=== PATIENT | male | born 1970 | race Caucasian/White ===

== ENCOUNTER 2019-09-18 20:33 | Inpatient (IN) | payer MEDICAID ==
[~2019-09-18] VITALS: Ht 165.1 cm; Wt 123.1 kg
[2019-09-18] MEDS ORDERED: SODIUM CHLORIDE FLUSH 10ML SYR IVF ONE (21:00)
--- NOTE | 2019-09-18 21:23 | NUR ---
MEDICAL RECORDS FROM [facility] REQUESTED.
[2019-09-18 21:45] LABS: BASOPHILS # (AUTO) 0.04 x10^3/uL (0-0.1); BASOPHILS % (AUTO) 1 % (0-1); EOSINOPHILS # (AUTO) 0.06 x10^3/uL (0-0.4); EOSINOPHILS % (AUTO) 1 % (1-7); LYMPHOCYTES # (AUTO) 0.69 x10^3/uL (1-3.4); LYMPHOCYTES % (AUTO) 9 % (22-44); MD NO; MEAN CORPUSCULAR HEMOGLOBIN 32.1 pg (27.5-34.5); MEAN CORPUSCULAR HGB CONC 32.5 g/dL (33.2-36.2); MEAN CORPUSCULAR VOLUME 98.9 fL (81-97); MEAN PLATELET VOLUME 8.4 fL (7.4-10.4); MONOCYTES # (AUTO) 0.79 x10^3/uL (0.2-0.8); MONOCYTES % (AUTO) 10 % (2-9); NEUTROPHILS # (AUTO) 6.05 x10^3/uL (1.8-6.8); NEUTROPHILS % (AUTO) 79 % (42-75); PLATELET COUNT 208 x10^3/uL (130-400); RED BLOOD COUNT 4.78 x10^6/uL (4.38-5.82); RED CELL DISTRIBUTION WIDTH 17.8 % (9.4-14.8)
[2019-09-18 21:54] LABS: INTERNATIONAL NORMALIZED RATIO 1.79 (0.93-1.1); PROTHROMBIN TIME 19.1 Seconds (9.6-11.5)
[2019-09-18] MEDS ORDERED: FUROSEMIDE 40 MG/4 ML IV ONE ×2 (22:00)
[2019-09-18 22:02] LABS: ALANINE AMINOTRANSFERASE 51 U/L (12-78); ALBUMIN 2.7 g/dL (3.4-5.0); ANION GAP 10 mmol/L (5-15); CALCIUM 8.3 mg/dL (8.5-10.1); CHLORIDE 108 mmol/L (98-107); CREATININE 1.23 mg/dL (0.7-1.3)
[2019-09-18 22:06] LABS: ALKALINE PHOSPHATASE 194 U/L (45-117); TOTAL PROTEIN 6.8 g/dL (6.4-8.2); TROPONIN I 0.084 ng/mL (0.000-0.045)
--- NOTE | 2019-09-18 22:11 | NUR ---
PT ARRIVES TO THE ED WITH RESP DISTRESS AND ABD PAIN. PT REPORTS THAT HE DOES NOT FEEL WELL AND FEELS LIKE HE HAS ALOT OF FLUID HE IS HOLDING ONTO. PT REPORTS HE ONLY GETS NO REFILL BOTTLES FOR HIS MEDICINES AND NEVER FOLLOWS UP. HIS PCP WONT SEE HIM BECUASE HE HAS HAD MULTIPLE NO SHOWS. PT LOOKS MODERATELY UNCOMFORTABLE. P REPORTS USING METH THIS MORNING.
[2019-09-18] MEDS ORDERED: FUROSEMIDE 40 MG/4 ML ONE (22:14)
--- NOTE | 2019-09-18 22:18 | NUR ---
Pt abulated to restroom with 1 person assist.
--- NOTE | 2019-09-18 23:26 | NUR ---
Pt was medicated per emar, made aware pt very sob with exertion.
--- NOTE | 2019-09-18 23:55 | NUR ---
Report to ROBBY reyes
[2019-09-19] MEDS ORDERED: ONDANSETRON ODT 4 MG PO PRN
[2019-09-19] MEDS ORDERED: POLYETHYLENE GLYCOL 17 GM PACKET PO PRN
[2019-09-19] MEDS ORDERED: BISACODYL 10 MG SUPP PR PRN
[2019-09-19] MEDS: NICOTINE 7 MG/24 HR PATCH.TD24 TD SCH (00:32)
[2019-09-19] MEDS: INSULIN LISPRO 100 UNITS/ML, PEN SQ-INSULIN SCH ×5 (00:33→20:29)
[2019-09-19 00:38] VITALS: BP 133/99
[2019-09-19] MEDS: LACTULOSE 20 GM/30 ML UDC PO SCH ×3 (00:55→20:14)
[2019-09-19 03:32] LABS: BASOPHILS # (AUTO) 0.14 x10^3/uL (0-0.1); BASOPHILS % (AUTO) 2 % (0-1); EOSINOPHILS # (AUTO) 0.06 x10^3/uL (0-0.4); EOSINOPHILS % (AUTO) 1 % (1-7); LYMPHOCYTES # (AUTO) 0.89 x10^3/uL (1-3.4); LYMPHOCYTES % (AUTO) 12 % (22-44); MD NO; MEAN CORPUSCULAR HEMOGLOBIN 31.9 pg (27.5-34.5); MEAN CORPUSCULAR HGB CONC 32.3 g/dL (33.2-36.2); MEAN CORPUSCULAR VOLUME 98.8 fL (81-97); MEAN PLATELET VOLUME 8.3 fL (7.4-10.4); MONOCYTES % (AUTO) 11 % (2-9); NEUTROPHILS # (AUTO) 5.76 x10^3/uL (1.8-6.8); NEUTROPHILS % (AUTO) 75 % (42-75); PLATELET COUNT 204 x10^3/uL (130-400); RED BLOOD COUNT 4.75 x10^6/uL (4.38-5.82); RED CELL DISTRIBUTION WIDTH 17.3 % (9.4-14.8)
[2019-09-19 03:43] LABS: ALANINE AMINOTRANSFERASE 51 U/L (12-78); ALBUMIN 2.7 g/dL (3.4-5.0); ANION GAP 8 mmol/L (5-15); CALCIUM 8.4 mg/dL (8.5-10.1); CHLORIDE 108 mmol/L (98-107); CREATININE 1.28 mg/dL (0.7-1.3)
[2019-09-19 03:47] LABS: ALKALINE PHOSPHATASE 197 U/L (45-117); BILIRUBIN,TOTAL 3.8 mg/dL (0.2-1.0); TOTAL PROTEIN 6.7 g/dL (6.4-8.2); TROPONIN I 0.094 ng/mL (0.000-0.045)
[2019-09-19 05:47] VITALS: BP 97/76
[2019-09-19] MEDS: CARVEDILOL 3.125 MG TABLET PO SCH ×2 (05:51→17:54)
[2019-09-19] MEDS: ASPIRIN 81 MG TABLET CHEW PO SCH (05:51)
[2019-09-19 07:00] VITALS: BP 128/90
[2019-09-19] MEDS: LISINOPRIL 10 MG TABLET PO SCH (08:37)
[2019-09-19] MEDS: SENNA/DOCUSATE TABLET PO SCH (08:37)
[2019-09-19] MEDS: SPIRONOLACTONE 25 MG TABLET PO SCH (08:38)
[2019-09-19] MEDS: SODIUM CHLORIDE FLUSH 10ML SYR IVF SCH ×3 (08:39→20:29)
[2019-09-19] MEDS: FUROSEMIDE 40 MG/4 ML IV SCH ×2 (08:44→17:54)
[2019-09-19 10:16] LABS: TROPONIN I 0.095 ng/mL (0.000-0.045)
[2019-09-19 18:06] LABS: MICROSCOPIC NOT IND
[2019-09-20] MEDS: NICOTINE 7 MG/24 HR PATCH.TD24 TD SCH ×2 (00:07→23:43)
[2019-09-20] MEDS: CARVEDILOL 3.125 MG TABLET PO SCH ×2 (05:24→17:11)
[2019-09-20] MEDS: ASPIRIN 81 MG TABLET CHEW PO SCH (05:24)
[2019-09-20 06:23] LABS: ANION GAP 7 mmol/L (5-15); CALCIUM 8.8 mg/dL (8.5-10.1); CHLORIDE 103 mmol/L (98-107); CREATININE 1.14 mg/dL (0.7-1.3)
[2019-09-20] MEDS: INSULIN LISPRO 100 UNITS/ML, PEN SQ-INSULIN SCH ×4 (07:00→20:31)
[2019-09-20] MEDS: LACTULOSE 20 GM/30 ML UDC PO SCH ×2 (08:15→21:00)
[2019-09-20] MEDS: FUROSEMIDE 40 MG/4 ML IV SCH ×2 (08:15→17:11)
[2019-09-20] MEDS: SENNA/DOCUSATE TABLET PO SCH (08:16)
[2019-09-20] MEDS: LISINOPRIL 10 MG TABLET PO SCH (08:16)
[2019-09-20] MEDS: SODIUM CHLORIDE FLUSH 10ML SYR IVF SCH ×2 (08:16→20:31)
[2019-09-20] MEDS: SPIRONOLACTONE 25 MG TABLET PO SCH (08:16)
[2019-09-20] MEDS ORDERED: ACETAMINOPHEN 325 MG TABLET PO PRN (22:30)
[2019-09-21 05:30] VITALS: BP 103/74
[2019-09-21] MEDS: ASPIRIN 81 MG TABLET CHEW PO SCH (05:37)
[2019-09-21] MEDS: CARVEDILOL 3.125 MG TABLET PO SCH ×2 (05:37→16:59)
[2019-09-21] MEDS: FUROSEMIDE 40 MG/4 ML IV SCH ×2 (06:02→16:59)
[2019-09-21 06:40] LABS: ANION GAP 8 mmol/L (5-15); CALCIUM 8.2 mg/dL (8.5-10.1); CHLORIDE 101 mmol/L (98-107)
[2019-09-21 07:48] VITALS: BP 116/95
[2019-09-21] MEDS: INSULIN LISPRO 100 UNITS/ML, PEN SQ-INSULIN SCH ×4 (08:04→20:27)
[2019-09-21] MEDS: SODIUM CHLORIDE FLUSH 10ML SYR IVF SCH ×2 (08:04→21:00)
[2019-09-21] MEDS: LACTULOSE 20 GM/30 ML UDC PO SCH ×2 (08:04→20:27)
[2019-09-21] MEDS: SPIRONOLACTONE 25 MG TABLET PO SCH (08:04)
[2019-09-21] MEDS: LISINOPRIL 10 MG TABLET PO SCH (08:04)
[2019-09-21] MEDS: SENNA/DOCUSATE TABLET PO SCH (08:05)
[2019-09-21 12:00] VITALS: BP 111/80
[2019-09-21 13:42] VITALS: BP 114/81
[2019-09-21 18:30] VITALS: BP 111/77
[2019-09-22] MEDS: NICOTINE 7 MG/24 HR PATCH.TD24 TD SCH (00:14)
[2019-09-22 02:07] VITALS: BP 132/80
[2019-09-22 05:40] VITALS: BP 108/74
[2019-09-22] MEDS: ASPIRIN 81 MG TABLET CHEW PO SCH (05:41)
[2019-09-22] MEDS: CARVEDILOL 3.125 MG TABLET PO SCH ×2 (05:41→16:30)
[2019-09-22 06:13] LABS: ANION GAP 7 mmol/L (5-15); CHLORIDE 101 mmol/L (98-107); CREATININE 0.95 mg/dL (0.7-1.3)
[2019-09-22 07:19] VITALS: BP 105/71
[2019-09-22] MEDS: INSULIN LISPRO 100 UNITS/ML, PEN SQ-INSULIN SCH ×4 (08:08→21:06)
[2019-09-22] MEDS: LACTULOSE 20 GM/30 ML UDC PO SCH ×2 (08:08→21:06)
[2019-09-22] MEDS: FUROSEMIDE 40 MG/4 ML IV SCH ×2 (08:08→16:30)
[2019-09-22] MEDS: SENNA/DOCUSATE TABLET PO SCH (08:08)
[2019-09-22] MEDS: LISINOPRIL 10 MG TABLET PO SCH (08:09)
[2019-09-22] MEDS: SPIRONOLACTONE 25 MG TABLET PO SCH (08:09)
[2019-09-22] MEDS: SODIUM CHLORIDE FLUSH 10ML SYR IVF SCH ×2 (08:10→21:06)
[2019-09-22 12:05] VITALS: BP 114/84
[2019-09-22 20:13] VITALS: BP 99/68
[2019-09-23 00:31] VITALS: BP 117/78
[2019-09-23] MEDS: NICOTINE 7 MG/24 HR PATCH.TD24 TD SCH (00:33)
[2019-09-23] MEDS: ASPIRIN 81 MG TABLET CHEW PO SCH (05:40)
[2019-09-23] MEDS: CARVEDILOL 3.125 MG TABLET PO SCH (05:40)
[2019-09-23 06:00] LABS: BASOPHILS # (AUTO) 0.06 x10^3/uL (0-0.1); BASOPHILS % (AUTO) 1 % (0-1); EOSINOPHILS # (AUTO) 0.25 x10^3/uL (0-0.4); EOSINOPHILS % (AUTO) 3 % (1-7); LYMPHOCYTES # (AUTO) 1.09 x10^3/uL (1-3.4); LYMPHOCYTES % (AUTO) 13 % (22-44); MD NO; MEAN CORPUSCULAR HGB CONC 32.8 g/dL (33.2-36.2); MEAN CORPUSCULAR VOLUME 100.7 fL (81-97); MEAN PLATELET VOLUME 7.9 fL (7.4-10.4); MONOCYTES # (AUTO) 0.77 x10^3/uL (0.2-0.8); MONOCYTES % (AUTO) 9 % (2-9); NEUTROPHILS # (AUTO) 6.02 x10^3/uL (1.8-6.8); NEUTROPHILS % (AUTO) 74 % (42-75); PLATELET COUNT 213 x10^3/uL (130-400); RED BLOOD COUNT 4.91 x10^6/uL (4.38-5.82); RED CELL DISTRIBUTION WIDTH 18.4 % (9.4-14.8)
[2019-09-23 06:14] LABS: ANION GAP 6 mmol/L (5-15); CALCIUM 8.3 mg/dL (8.5-10.1); CHLORIDE 98 mmol/L (98-107)
[2019-09-23 06:15] LABS: CREATININE 1.11 mg/dL (0.7-1.3)
[2019-09-23 07:19] VITALS: BP 108/74
[2019-09-23] MEDS: FUROSEMIDE 40 MG/4 ML IV SCH (07:20)
[2019-09-23] MEDS: LACTULOSE 20 GM/30 ML UDC PO SCH (07:20)
[2019-09-23] MEDS: SPIRONOLACTONE 25 MG TABLET PO SCH (07:20)
[2019-09-23] MEDS: SENNA/DOCUSATE TABLET PO SCH (07:20)
[2019-09-23] MEDS: LISINOPRIL 10 MG TABLET PO SCH (07:20)
[2019-09-23] MEDS: INSULIN LISPRO 100 UNITS/ML, PEN SQ-INSULIN SCH ×2 (07:21→11:25)
[2019-09-23] MEDS: SODIUM CHLORIDE FLUSH 10ML SYR IVF SCH (07:21)
[2019-09-23] MEDS ORDERED: LACT20SO13 PO (13:34)
[2019-09-23] MEDS ORDERED: SPIR25TA PO (13:34)
[2019-09-23] MEDS ORDERED: CARV3.1212 PO (13:34)
[2019-09-23] MEDS ORDERED: ASPI-515 PO (13:34)
[2019-09-23] MEDS ORDERED: FURO40TA6 PO (13:34)
[2019-09-23] MEDS ORDERED: LISI-167 PO (13:34)
[2019-09-23] MEDS ORDERED: FUROSEMIDE 40 MG TABLET PO SCH (17:00)
== END 2019-09-23 15:36 | disposition home or self-care (01) | DRG 291 ==
LOC: ED 22:07 → EDIP 23:23 → 5SO 23:42 → EDIP 23:43 → 5SO 09-19 00:06 → ICU 09-19 10:08 → 5SO 09-21 10:52
PROVIDERS: ADMIT Internal Medicine; ATTEND Hospitalist
DX: I11.0 Hypertensive heart disease with heart failure (principal); J96.01 Acute respiratory failure with hypoxia; Z68.42 Body mass index [BMI] 45.0-49.9, adult; E46 Unspecified protein-calorie malnutrition; I50.23 Acute on chronic systolic (congestive) heart failure; E11.65 Type 2 diabetes mellitus with hyperglycemia; D75.89 Other specified diseases of blood and blood-forming organs; F15.10 Other stimulant abuse, uncomplicated; R00.0 Tachycardia, unspecified; E78.5 Hyperlipidemia, unspecified; I42.8 Other cardiomyopathies; I34.0 Nonrheumatic mitral (valve) insufficiency; E87.70 Fluid overload, unspecified; E66.01 Morbid (severe) obesity due to excess calories; Z91.14 Patient's other noncompliance with medication regimen; Z59.0 Homelessness; Z90.49 Acquired absence of other specified parts of digestive tract; Z88.0 Allergy status to penicillin; Z88.8 Allergy status to other drugs, medicaments and biological substances; Z11.59 Encounter for screening for other viral diseases; I27.20 Pulmonary hypertension, unspecified
CPT/HCPCS: 36415; 36600; 71045; 80048; 80053; 81003; 82140; 82607; 82803; 82962; 83036; 83880; 84484; 85025; 85610; 85730; 87081; 93005; 93306; 94660; G0378; J1940; J1815; U0001-CS